=== PATIENT | male | born 1970 | race Caucasian/White ===

== ENCOUNTER 2021-08-08 16:03 | Emergency (ER) | payer BC ==
[~2021-08-08] VITALS: Ht 185.4 cm; Wt 113.4 kg
[2021-08-08] MEDS ORDERED: ELIQUIS5 M2 PO (18:21)
== END 2021-08-08 18:45 | disposition home or self-care (01) ==
LOC: ER 16:03
DX: I82.411 Acute embolism and thrombosis of right femoral vein (principal); I82.431 Acute embolism and thrombosis of right popliteal vein; I82.461 Acute embolism and thrombosis of right calf muscular vein
CPT/HCPCS: 93971; A9270